=== PATIENT | male | born 1950 | race Caucasian/White ===

== ENCOUNTER 2018-05-16 14:13 | Outpatient (CLI) | payer BC | END 2018-05-16 14:14 | disposition home or self-care (01) | LOC: CTENTCT 14:13 | PROVIDERS: ATTEND Specialist | DX: J32.9 Chronic sinusitis, unspecified (principal) | CPT/HCPCS: 70486 ==

== ENCOUNTER 2020-01-29 06:51 | Day surgery (SDC) | payer BC ==
[2020-01-28 10:23] VITALS: BMI 29.2
[2020-01-29 08:20] VITALS: BP 147/84; TEMP 99.1
[2020-01-29] MEDS ORDERED: FLU VACC QS2020-21(65YR UP)/PF 240 MCG/0.7 ML SYRINGE IM ONE (11:30)
--- NOTE | 2020-01-29 12:11 | RAD ---
PROCEDURE: XR Myelogram Lumbar Spine PROVIDED CLINICAL HISTORY: Low back pain, lumbar radiculopathy. COMPARISON: None TECHNIQUE: The procedure including the risks and complications were explained to the patient, and informed conse nt was obtained. Patient was placed on the fluoroscopy table in the prone position. An area overlying the L5-S1 level was marked and then meticulously prepped and draped in usual sterile fashio n. Skin and subcutaneous tissues were infiltrated with buffered 1% lidocaine for local anesthesia. Utilizing fluoroscopic guidance, a 22-gauge spinal needle was advanced into the central canal. The in ner stylette was removed with a return of clear cerebral spinal fluid. Approximately 8 mL of Isovue-M 200 contrast was instilled into the thecal sac. The inner stylette was replaced, and the nee dle was removed. Hemostasis was achieved with direct pressure, and a dry sterile dressing was placed. Patient transpor ashu to CT scan for further imaging. The patient tolerated the procedure well without immediate complication. Fluoroscopy: Time-0.6 minutes Dose-82.5 mcg meter squared FINDINGS: Headwaiter/Headwaitress images of the lumbar spine demonstrate postoperative changes related to posterior fusion at the L4-5 and L5-S1 levels with unilateral left-sided pedicular screws and interlocking rods transfixing these levels. Intradiscal prostheses are present. No hardware complication is seen. Multi level degenerative changes with osteophytes throughout the lumbar spine are noted. There is suggestion of trace retrolisthesis of L3 on L4. The vertebral body heights are within normal limits. Multiple phleboliths overlie the pelvis. A lumbar myelogram was successfully performed with puncture at the L5-S1 level. IMPRESSION: 1. Postoperative and degenerative changes lumbar spine. 2. Technically successful lumbar myelogram. Please see CT lumbar spine performed after this exam for further details.
--- NOTE | 2020-01-29 14:12 | CT ---
CT lumbar spine without contrast post myelogram: HISTORY: Low back pain with pain radiating to left hip. No acute injury. COMPARISON: CT lumbar spine on 07/05/2019 FINDINGS: The visualized retroperitoneal structures demonstrate a normal nonenhanced CT appearance aside from m inimal vascular calcifications in the abdominal aorta. There is slight wedging of the T12 vertebral body complexes are seen on MRI examination in 2010. This may be related to physiological wedging. Remaining vertebral body heights are within normal limits, no fracture or subluxation is appreciated. There are now postoperative changes of the lumbar spine related to posterior fusion with unilateral l eft-sided pedicular screws with interlocking rods transfixing the L4-5 and L5-S1 levels. Intradiscal prostheses are present at these levels. There is lucency seen along the inferior aspect o f the proximal left L4 pedicle screw with minimal lucency also seen involving the inferior aspect of the distal most portion of the S1 pedicle screw which could be related to mild hardware loosening. L1-2: Mild disc osteophyte complex is present resulting in mild right-sided neural foraminal narrowin g and central canal narrowing. The left neural foramen is patent. L2-3: Broad-based disc osteophyte with facet hypertrophic changes. This results in mild to moderate c entral canal narrowing. Mild right-sided neural foraminal narrowing is present. The left neural foramen is patent. L3-4: Loss of intervertebral disc height with vacuum phenomenon seen in the intervertebral disc. Broa d-based disc osteophyte complex is present with prominent facet hypertrophic changes and ligamentous thickening. Moderate to severe central canal narrowing is present at this level. The degr ee of central canal narrowing is similar to MRI lumbar spine on 07/13/2009. Fat planes surrounding the nerve roots within each neural foramina is not well delineated, and there appears to be mild to m oderate bilateral neural foraminal narrowing. L4-5: Postoperative changes with intradiscal prosthesis in place and vacuum phenomenon in the interve rtebral disc. There is a broad-based disc osteophyte complex and prominent facet hypertrophic changes. Moderate central canal narrowing is present. Moderate bilateral neural foraminal narrowing i s present. There is soft tissue density in the inferior aspect of the left neural foramen which could be related to mild scarring which abuts the nerve root within the left neural foramen. L5-S1: Intradiscal prosthesis is present level, but a broad-based disc osteophyte complex is noted. T here are prominent facet hypertrophic changes identified. Central spinal canal is patent with moderate to severe right and mild to moderate left-sided neural foraminal narrowing. IMPRESSION: 1. Postoperative and degenerative changes of the lumbar spine as described above with varying degrees of neural foraminal narrowing. 2. Subtle lucencies adjacent to the pedicular screws in L3 and L5 which could be related to hardware loosening.
== END 2020-01-29 09:50 | disposition home or self-care (01) ==
LOC: RAD 06:51
PROVIDERS: ATTEND Neurological Surgery
PROC: B02B1ZZ Computerized Tomography (CT Scan) of Spinal Cord using Low Osmolar Contrast (ICD-10-PCS; principal; 2020-01-29)
DX: M54.16 Radiculopathy, lumbar region (principal); M25.78 Osteophyte, vertebrae; Z79.899 Other long term (current) drug therapy
CPT/HCPCS: 62304; 72132

== ENCOUNTER 2021-02-04 12:09 | Emergency (ER) | payer BC ==
[2021-02-04 13:01] LABS: #Eosinphils 0.2 thou/uL (0.0-0.7); #Monocytes 0.5 thou/uL (0.11-0.59); #Neutrophils 5.1 thou/uL (1.40-6.50); %Basophils 0.6 % (0.0-1.0); %Eosinophils 2.3 % (0.0-10.0); %Lymphocytes 14.5 % (21.0-51.0); %Monocytes 7.1 % (0.0-10.0); %Neutrophils 75.6 % (42.0-75.0); Hemoglobin 15.6 g/dL (14.0-18.0); Mean Corpuscular HGB CONC 35.5 g/dL (32.0-36.0); Mean Corpuscular Hemoglobin 33.5 pg (27.0-31.0); Mean Corpuscular Volume 94.5 fL (78.0-98.0); Mean Platelet Volume 7.8 fL (7.4-10.4); Platelet Count 160 thou/uL (130-400); RBC Distribution Width 11.7 % (11.5-14.5); Red Blood Cell (RBC) Count 4.66 mill/uL (4.70-6.10); White Blood Cell (WBC) Count 6.7 thou/uL (4.8-10.8)
[2021-02-04 13:19] LABS: ALT (SGPT) 24 U/L (8-55); AST (SGOT) 25 U/L (5-34); Albumin 4.1 g/dL (3.4-4.8); Alkaline Phosphatase 75 U/L (40-110); Anion Gap 12 mmol/L (10-20); BUN (Urea Nitrogen) 13 mg/dL (8.4-25.7); Bilirubin, Total 1.2 mg/dL (0.2-1.2); Calc. Creatinine Clearance 0 mL/min (70-130); Calcium 9.2 mg/dL (7.8-10.44); Carbon Dioxide 25 mmol/L (23-31); Chloride 107 mmol/L (98-107); Globulin 2.8 g/dL (2.4-3.5); Glucose 109 mg/dL (80-115); Potassium 4.2 mmol/L (3.5-5.1); Protein, Total 6.9 g/dL (5.8-8.1); Sodium 140 mmol/L (136-145)
== END 2021-02-04 14:20 | disposition home or self-care (01) ==
LOC: ERS 12:09
DX: R42 Dizziness and giddiness (principal)
CPT/HCPCS: 36415; 71045; 80053; 84484; 85025; 93005; 94760